=== PATIENT | female | born 1990 | race Caucasian/White ===

== ENCOUNTER 2017-02-11 19:57 | Emergency (ER) | payer MEDICAID, OTHER ==
[2017-02-11] MEDS ORDERED: 0.9 % SODIUM CHLORIDE 1,000 ML BAG IV ONE ×2 (20:55→21:32)
[2017-02-11] MEDS ORDERED: ONDANSETRON HCL IV 4 MG/2 ML VIAL IVP ONE (20:56)
[2017-02-11 21:39] LABS: BASO % 0.2 % (0-6); EOS % 0.1 % (0-6); HEMATOCRIT 44.3 % (35.0-47.0); HEMOGLOBIN 14.9 gm/dl (11.6-16.0); LYMPH % 4.2 % (16-45); MEAN CELL VOLUME 85.9 fl (81-97); MEAN CORPUSCULAR HEMOGLOBIN 28.9 pg (27-33); MEAN CORPUSCULAR HGB CONC 33.6 g/dl (32-36); MEAN PLATELET VOLUME 10.2 fl (7.4-10.4); MONO % 7.2 % (0-9); PLATELET COUNT 233 K/uL (130-400); RED BLOOD COUNT 5.16 M/uL (3.80-5.40); RED CELL DISTRIBUTION WIDTH 13.4 % (11.5-14.5); WHITE BLOOD COUNT W/O DIFF 11.5 K/uL (4.2-12.2)
[2017-02-11 21:51] LABS: ALB/GLOB RATIO 1.8 (1.1-1.8); ALBUMIN 4.8 gm/dL (3.5-5.0); ALKALINE PHOSPHATASE 60 U/L (38-126); ALT/SGPT 30 U/L (9-52); ANION GAP 12.7 (7-16); AST/SGOT 26 U/L (14-36); BILIRUBIN,TOTAL 1.13 mg/dL (0.2-1.3); BLOOD UREA NITROGEN 11 mg/dL (7-17); CARBON DIOXIDE 23.3 mmol/L (22-30); CREATININE 0.7 mg/dL (0.52-1.04); EST GLOMERULAR FILTRATION RATE > 60 ml/min; GLUCOSE,RANDOM 102 mg/dL (70-110); TOTAL PROTEIN 7.4 gm/dL (6.3-8.2)
[2017-02-11 22:00] LABS: URINE APPEARANCE CLEAR; URINE BILIRUBIN SMALL (NEGATIVE); URINE BLOOD NEGATIVE (NEGATIVE); URINE COLOR YELLOW; URINE GLUCOSE (UA) NEGATIVE (NEGATIVE); URINE LEUKOCYTE ESTERASE NEGATIVE (NEGATIVE); URINE NITRITE NEGATIVE (NEGATIVE); URINE PROTEIN TRACE (NEGATIVE)
[2017-02-11 22:02] LABS: HCG,QUALITATIVE URINE NEGATIVE (NEGATIVE); URINE KETONE 80 mg/dL (NEGATIVE)
--- NOTE | 2017-02-11 22:05 | Emergency Department Record ---
History of Present Illness - General Chief complaint: Vomiting Stated complaint: VOMITING Time Seen by Provider: 02/11/17 21:29 Source: Patient Mode of Arrival: Ambulatory Limitations: No limitations - History of Present Illness Initial comments: pt stated she drank too much alcohol last night and started vomiting at 3am. she states she has been vomiting all day and has been unable to keep water down. MD complaint: Nausea, Vomiting Onset/Timin -: Hour(s) Associated Abdominal Pain: No Radiation: Back Severity scale (1-10): 5 Quality: Aching Associated Symptoms: Nausea/vomiting - Related Data Allergies Allergy/AdvReac Type Severity Reaction Status Date / Time Penicillins Allergy Severe HIVES Verified 02/11/17 20:41 sulfamethoxazole Allergy Severe ANAPHYLAXIS Verified 02/11/17 20:41 [From Bactrim] trimethoprim [From Bactrim] Allergy Severe ANAPHYLAXIS Verified 02/11/17 20:41 cephalexin monohydrate Allergy Intermediate RASH Verified 02/11/17 20:41 [From Keflex] Travel Screening - Travel/Exposure Within Last 30 Days Have you traveled within the last 30 days?: No - Travel Symptoms Symptom Screening: None Review of Systems Reviewed: No additional complaints except as noted below Constitutional: Reports: As per HPI. Denies: Chills, Fever, Malaise, Night sweats, Weakness, Weight change Eyes: Reports: As per HPI. Denies: Eye discharge, Eye pain, Photophobia, Vision change ENT: Reports: As per HPI. Denies: Congestion, Dental pain, Ear pain, Epistaxis , Hearing loss, Throat pain Respiratory: Reports: As per HPI. Denies: Cough, Dyspnea, Hemoptysis, Stridor, Wheezes Cardiovascular: Reports: As per HPI. Denies: Arrhythmia, Chest pain, Dyspnea on exertion, Edema, Murmurs, Orthopnea, Palpitations, Paroxysmal nocturnal dyspnea, Rheumatic Fever, Syncope Endocrine: Reports: As per HPI. Denies: Fatigue, Heat or cold intolerance, Polydipsia, Polyuria Gastrointestinal: Reports: As per HPI. Denies: Abdominal pain, Constipation, Diarrhea, Hematemesis, Hematochezia, Melena, Nausea, Vomiting Genitourinary: Reports: As per HPI. Denies: Abnormal menses, Discharge, Dyspareunia, Dysuria, Frequency, Hematuria, Incontinence, Retention, Urgency Musculoskeletal: Reports: As per HPI. Denies: Arthralgia, Back pain, Gout, Joint swelling, Myalgia, Neck pain Skin: Reports: As per HPI. Denies: Bruising, Change in color, Change in hair/ nails, Lesions, Pruritus, Rash Neurological: Reports: As per HPI. Denies: Abnormal gait, Confusion, Headache, Numbness, Paresthesias, Seizure, Tingling, Tremors, Vertigo, Weakness Psychiatric: Reports: As per HPI. Denies: Anxiety, Auditory hallucinations, Depression, Homicidal thoughts, Suicidal thoughts, Visual hallucinations Hematological/Lymphatic: Reports: As per HPI. Denies: Anemia, Blood Clots, Easy bleeding, Easy bruising, Swollen glands Past Medical History - SOCIAL HISTORY Smoking Status: Current every day smoker - RESPIRATORY Hx Respiratory Disorders: No - CARDIOVASCULAR Hx Cardio Disorders: No - NEURO Hx Neuro Disorders: No - GI Hx GI Disorders: Yes Hx Reflux: Yes - Hx Genitourinary Disorders: No - ENDOCRINE Hx Endocrine Disorders: No - MUSCULOSKELETAL Hx Musculoskeletal Disorders: No - PSYCH Hx Psych Problems: No - HEMATOLOGY/ONCOLOGY Hx Hematology/Oncology Disorders: No Family Medical History Any Significant Family History?: Yes Hx HTN: Grandparents Physical Exam - General General Appearance: Alert, Oriented x3, Cooperative, Mild distress - Head Head exam: Normal inspection - Eye Eye exam: Normal appearance, PERRL, EOMI Pupils: Normal accommodation - ENT ENT exam: Normal exam, Mucous membranes dry, Normal external ear exam, Normal orophraynx, TM's normal bilaterally Ear exam: Normal external inspection. negative: External canal tenderness Nasal Exam: Normal inspection. negative: Discharge, Sinus tenderness Mouth exam: Normal external inspection, Tongue normal Teeth exam: Normal inspection. negative: Dental caries Throat exam: Normal inspection. negative: Tonsillar erythema, Tonsillar exudate - Neck Neck exam: Normal inspection, Full ROM. negative: Tenderness - Respiratory Respiratory exam: Normal lung sounds bilaterally. negative: Respiratory distress - Cardiovascular Cardiovascular Exam: Regular rate, Normal rhythm, Normal heart sounds - GI/Abdominal GI/Abdominal exam: Soft, Normal bowel sounds. negative: Tenderness - Rectal Rectal exam: Deferred - exam: Deferred - Extremities Extremities exam: Normal inspection, Full ROM, Normal capillary refill. negative: Tenderness - Back Back exam: Reports: Normal inspection, Full ROM. Denies: Muscle spasm, Rash noted, Tenderness - Neurological Neurological exam: Alert, CN II-XII intact, Normal gait, Oriented X3 - Psychiatric Psychiatric exam: Normal affect, Normal mood - Skin Skin exam: Dry, Intact, Normal color, Warm Course Vital Signs 02/11/17 20:25 Temperature 99.5 F Pulse Rate [ 84 Pulse Ox Probe] Respiratory 18 Rate Blood Pressure 127/90 [Left Arm] Pulse Ox 97 - Reevaluation(s) Reevaluation #1: 02/11/17 22:04 pt feels much better Medical Decision Making - Lab Data Result diagrams: 02/11/17 20:55 02/11/17 20:55 Lab Results 02/11/17 02/11/17 Range/Units 20:55 20:55 WBC 11.5 (4.2-12.2) K/uL RBC 5.16 (3.80-5.40) M/uL Hgb 14.9 (11.6-16.0) gm/dl Hct 44.3 (35.0-47.0) % MCV 85.9 (81-97) fl MCH 28.9 (27-33) pg MCHC 33.6 (32-36) g/dl RDW 13.4 (11.5-14.5) % Plt Count 233 (130-400) K/uL MPV 10.2 (7.4-10.4) fl Neutrophils % 83.0 H (47-80) % Band Neutrophils % 3.0 (0-5) % Lymphocytes % 6.0 L (16-45) % Monocytes % 8.0 (0-9) % Eosinophils % 0.0 (0-6) % Basophils % 0.0 (0-6) % Sodium 145 (136-145) mmol/L Potassium 3.7 (3.5-5.1) mmol/L Chloride 109 H (98-107) mmol/L Carbon Dioxide 23.3 (22-30) mmol/L Anion Gap 12.7 (7-16) BUN 11 (7-17) mg/dL Creatinine 0.7 (0.52-1.04) mg/dL Estimated GFR > 60 ml/min Random Glucose 102 (70-110) mg/dL Calcium 9.2 (8.5-10.1) mg/dL Total Bilirubin 1.13 (0.2-1.3) mg/dL AST 26 (14-36) U/L ALT 30 (9-52) U/L Alkaline Phosphatase 60 (38-126) U/L Total Protein 7.4 (6.3-8.2) gm/dL Albumin 4.8 (3.5-5.0) gm/dL Globulin 2.6 (1.4-4.8) gm/dL Albumin/Globulin Ratio 1.8 (1.1-1.8) Disposition Disposition: Discharge Clinical Impression: Dehydration Vomiting Qualifiers: Vomiting type: unspecified Vomiting Intractability: intractable Nausea presence : with nausea Qualified Code(s): R11.2 - Nausea with vomiting, unspecified Disposition: Home, Self-Care Condition: (1) Good Instructions: Acute Nausea and Vomiting (ED) Additional Instructions: follow up with family doctor. return sooner if worse. push fluids. take zofran in 6 hrs if needed Forms: Patient Portal Access
[2017-02-11] MEDS ORDERED: ONDANSETRON 4 MG ODT TABLET SL ONE (22:27)
== END 2017-02-11 22:48 | disposition home or self-care (01) ==
LOC: ER 19:57
DX: E86.0 Dehydration (principal); R11.2 Nausea with vomiting, unspecified
CPT/HCPCS: 80053; 81003; 81025; 85027; 96361; 96374; 99284; J2405; J7030

== ENCOUNTER 2017-12-18 04:53 | Emergency (ER) | payer BC ==
[2017-12-18] MEDS ORDERED: 0.9 % SODIUM CHLORIDE 1,000 ML BAG IV ONE (05:09)
[2017-12-18] MEDS ORDERED: ONDANSETRON HCL IV 4 MG/2 ML VIAL IVP ONE (05:10)
[2017-12-18] MEDS ORDERED: 0.9 % SODIUM CHLORIDE 1000ML 2,000 ML IV SCH (05:15)
--- NOTE | 2017-12-18 05:16 | Emergency Department Record ---
History of Present Illness - General Chief complaint: Vomiting Stated complaint: VOMITTING/9 WEEKS Time Seen by Provider: 12/18/17 05:10 Source: Patient Mode of Arrival: Ambulatory Limitations: No limitations - History of Present Illness Initial comments: 27 yo female presents to ED for evaluation of nausea and vomiting symptoms for the past 2-3 days. Patient reports that she is approximately 6 weeks , denies abdominal pain, cramping or bleeding symptoms. Patient reports that she was instructed by her OB to take Vitamin B6 for her nausea symptoms, has a prescription for Zofran that she has not filled as her OB told her that the medication is a "last resort". MD complaint: Nausea, Vomiting Onset/Timin -: Days(s) Description of Vomiting: Watery Associated Abdominal Pain: No Consistency: Intermittent Improves with: None Worsens with: Eating Associated Symptoms: Denies other symptoms - Related Data Home Medications Medication Instructions Recorded Confirmed Last Taken B6/mg/Turm/Rosalba/Anis/Gar/Gin/Sp 1 each PO DAILY PRN 12/18/17 12/18/17 Unknown [Morning Sickless Combo Pack] Allergies Allergy/AdvReac Type Severity Reaction Status Date / Time Penicillins Allergy Severe HIVES Unverified 12/03/17 19:38 sulfamethoxazole Allergy Severe ANAPHYLAXIS Unverified 12/03/17 19:38 [From Bactrim] trimethoprim [From Bactrim] Allergy Severe ANAPHYLAXIS Unverified 12/03/17 19:38 cephalexin monohydrate Allergy Intermediate RASH Unverified 12/03/17 19:38 [From Keflex] Travel Screening - Travel/Exposure Within Last 30 Days Have you traveled within the last 30 days?: No - Travel Symptoms Symptom Screening: Vomiting Review of Systems Constitutional: Denies: Chills, Fever, Malaise, Night sweats Eyes: Denies: Eye discharge, Eye pain ENT: Denies: Congestion, Ear pain, Epistaxis Respiratory: Denies: Cough, Dyspnea Cardiovascular: Denies: Arrhythmia, Chest pain Endocrine: Denies: Fatigue, Heat or cold intolerance Gastrointestinal: Reports: Nausea, Vomiting. Denies: Abdominal pain Genitourinary: Denies: Incontinence, Retention Musculoskeletal: Denies: Arthralgia, Back pain, Gout, Joint swelling Skin: Denies: Bruising, Change in color Neurological: Denies: Abnormal gait, Confusion, Headache, Seizure Psychiatric: Denies: Anxiety Hematological/Lymphatic: Denies: Anemia, Blood Clots Past Medical History - SOCIAL HISTORY Smoking Status: Current every day smoker Alcohol Use: None Drug Use: None - RESPIRATORY Hx Respiratory Disorders: No - CARDIOVASCULAR Hx Cardio Disorders: No - NEURO Hx Neuro Disorders: No - GI Hx GI Disorders: Yes Hx Reflux: Yes - Hx Genitourinary Disorders: No - ENDOCRINE Hx Endocrine Disorders: No - MUSCULOSKELETAL Hx Musculoskeletal Disorders: No - PSYCH Hx Psych Problems: No - HEMATOLOGY/ONCOLOGY Hx Hematology/Oncology Disorders: No Family Medical History Any Significant Family History?: Yes Hx HTN: Grandparents Physical Exam - General General Appearance: Alert, Oriented x3, Cooperative, Mild distress Limitations: No limitations - Head Head exam: Atraumatic, Normocephalic, Normal inspection Head exam detail: negative: Abrasion, Contusion, Ponce's sign, General tenderness, Hematoma, Laceration - Eye Eye exam: Normal appearance. negative: Conjunctival injection, Periorbital swelling, Periorbital tenderness, Scleral icterus - ENT Ear exam: negative: Auricular hematoma, Auricular trauma Nasal Exam: negative: Active bleeding, Discharge, Dried blood, Foreign body Mouth exam: negative: Drooling, Laceration, Tongue elevation - Neck Neck exam: Normal inspection. negative: Meningismus, Tenderness - Respiratory Respiratory exam: Normal lung sounds bilaterally. negative: Rales, Respiratory distress, Rhonchi, Stridor - Cardiovascular Cardiovascular Exam: Regular rate, Normal rhythm, Normal heart sounds - GI/Abdominal GI/Abdominal exam: Soft. negative: Rebound, Rigid, Tenderness - Rectal Rectal exam: Deferred - exam: Deferred - Extremities Extremities exam: Normal inspection. negative: Calf tenderness, Pedal edema, Tenderness - Back Back exam: Denies: CVA tenderness (R), CVA tenderness (L) - Neurological Neurological exam: Alert, Normal gait, Oriented X3 - Psychiatric Psychiatric exam: Normal affect, Normal mood - Skin Skin exam: Normal color. negative: Abrasion Type of lesion: negative: abrasion Course Vital Signs 12/18/17 04:58 Temperature 98.2 F Respiratory 20 Rate Blood Pressure 130/96 - Reevaluation(s) Reevaluation #1: 12/18/17 06:12 Labs reviewed, HCO3 17, AG 17. Labs are otherwise grossly unremarkable for an acute process. Reevaluation #2: 12/18/17 06:39 UA and influenza are negative as well. Patient is tolerating PO, reports improvement in her symptoms, and appears stable for discharge at this time. Medical Decision Making - Lab Data Result diagrams: 12/18/17 05:10 12/18/17 05:10 Disposition Disposition: Discharge Clinical Impression: Vomiting affecting Disposition: Home, Self-Care Condition: (2) Stable Instructions: Hyperemesis Gravidarum (ED) Additional Instructions: Return to ED if your symptoms worsen or if you have any concerns. Zofran as previously prescribed. Follow-up with your OB in 1-3 days as directed. Forms: Patient Portal Access Time of Disposition: 06:40 Quality - Quality Measures Quality Measures: N/A - Blood Pressure Screening Does Patient Have Any of the Following: No Blood Pressure Classification: Hypertensive Reading Systolic Measurement: 130 Diastolic Measurement: 96 Screening for High Blood Pressure: < First Hypertensive BP, F/U Documented > [ G8950] First Hypertensive Follow-up Interventions: Referral to alternative/primary care provider.
[2017-12-18 05:19] LABS: BASO % 0.2 % (0-6); EOS % 0.4 % (0-6); GRAN % 73.4 % (47-80); HEMOGLOBIN 14.4 gm/dl (11.6-16.0); LYMPH % 18.5 % (16-45); MEAN CELL VOLUME 81.9 fl (81-97); MEAN CORPUSCULAR HEMOGLOBIN 28.1 pg (27-33); MEAN CORPUSCULAR HGB CONC 34.3 g/dl (32-36); MEAN PLATELET VOLUME 9.3 fl (7.4-10.4); MONO % 7.5 % (0-9); PLATELET COUNT 287 K/uL (130-400); RED BLOOD COUNT 5.13 M/uL (3.80-5.40); RED CELL DISTRIBUTION WIDTH 13.3 % (11.5-14.5)
[2017-12-18 05:40] LABS: ALBUMIN 4.5 g/dL (4.0-5.0); ALKALINE PHOSPHATASE 38 U/L (35-104); ALT/SGPT 14 U/L (<33)
[2017-12-18 05:41] LABS: ALB/GLOB RATIO 1.6 (1.1-1.8); AST/SGOT 34 U/L (10.0-35.0); BLOOD UREA NITROGEN 7 mg/dL (6-20); CREATININE 0.5 mg/dL (0.5-0.9); EST GLOMERULAR FILTRATION RATE > 60 mL/min; GLUCOSE,RANDOM 106 mg/dL (74-109); LIPASE 23 U/L (13-60); TOTAL PROTEIN 7.4 g/dL (6.6-8.7)
[2017-12-18 06:29] LABS: URINE APPEARANCE CLEAR; URINE BILIRUBIN NEGATIVE (NEGATIVE); URINE BLOOD NEGATIVE (NEGATIVE); URINE COLOR YELLOW; URINE GLUCOSE (UA) NEGATIVE (NEGATIVE); URINE KETONE 15 mg/dL (NEGATIVE); URINE LEUKOCYTE ESTERASE TRACE (NEGATIVE); URINE NITRITE NEGATIVE (NEGATIVE); URINE PROTEIN NEGATIVE (NEGATIVE); URINE UROBILINOGEN 0.2 E.U./dL (0.20 - 1.00)
[2017-12-18 06:37] LABS: URINE BACTERIA FEW; URINE EPITHELIAL CELLS TNTC (FEW); URINE RBC 0 - 2 (NONE SEEN); URINE WBC 0 - 2 (0-2/hpf)
[2017-12-18 06:40] LABS: INFLUENZA A NEGATIVE (NEGATIVE); INFLUENZA B NEGATIVE (NEGATIVE)
== END 2017-12-18 07:01 | disposition home or self-care (01) ==
LOC: ER 04:53
DX: O21.0 Mild hyperemesis gravidarum (principal); Z3A.09 9 weeks gestation of pregnancy; O99.331 Smoking (tobacco) complicating pregnancy, first trimester
CPT/HCPCS: 99284 ×2; 96360; 96361; 83690; 85025; 80053; 81001; 87400; J2405; J7030

== ENCOUNTER 2018-01-16 02:13 | Emergency (ER) | payer BC ==
--- NOTE | 2018-01-16 02:27 | Emergency Department Record ---
History of Present Illness - General Chief complaint: ENT Stated complaint: EAR PAIN Time Seen by Provider: 01/16/18 02:25 Source: Patient Mode of Arrival: Ambulatory Limitations: No limitations - History of Present Illness Initial comments: 27 yo female presents to ED for evaluation of blood from the right ear. Patient reports that she was diagnosed with otitis media yesterday, started on Keflex due to PCN allergy. Patient reports that her she had significant pain/ pressure to the right ear that has now resolved as well. Patient denies fevers , chills, or recent illness. MD complaint: Ear pain Onset/Timin -: Days(s) Location: R ear Severity: Moderate Quality: Aching Consistency: Constant Improves with: None Worsens with: None - Related Data Allergies Allergy/AdvReac Type Severity Reaction Status Date / Time Penicillins Allergy Severe HIVES Unverified 12/03/17 19:38 sulfamethoxazole Allergy Severe ANAPHYLAXIS Unverified 12/03/17 19:38 [From Bactrim] trimethoprim [From Bactrim] Allergy Severe ANAPHYLAXIS Unverified 12/03/17 19:38 cephalexin monohydrate Allergy Intermediate RASH Unverified 12/03/17 19:38 [From Keflex] ciprofloxacin [From Cipro] AdvReac Mild Swelling Unverified 01/10/18 10:28 of lips ciprofloxacin HCl AdvReac Mild Swelling Unverified 01/10/18 10:28 [From Cipro] of lips Review of Systems Constitutional: Denies: Chills, Fever, Malaise, Night sweats Eyes: Denies: Eye discharge, Eye pain ENT: Reports: Ear pain. Denies: Congestion, Epistaxis Respiratory: Denies: Cough, Dyspnea Cardiovascular: Denies: Chest pain, Dyspnea on exertion Endocrine: Denies: Fatigue, Heat or cold intolerance Gastrointestinal: Denies: Abdominal pain, Nausea, Vomiting Genitourinary: Denies: Retention Musculoskeletal: Denies: Arthralgia, Back pain Skin: Denies: Bruising, Change in color Neurological: Denies: Abnormal gait, Confusion, Headache, Seizure Psychiatric: Denies: Anxiety Hematological/Lymphatic: Denies: Anemia, Blood Clots Past Medical History - SOCIAL HISTORY Smoking Status: Current every day smoker Drug Use: None - RESPIRATORY Hx Respiratory Disorders: No - CARDIOVASCULAR Hx Cardio Disorders: No - NEURO Hx Neuro Disorders: No - GI Hx GI Disorders: Yes Hx Reflux: Yes - Hx Genitourinary Disorders: No - ENDOCRINE Hx Endocrine Disorders: No - MUSCULOSKELETAL Hx Musculoskeletal Disorders: No - PSYCH Hx Psych Problems: No - HEMATOLOGY/ONCOLOGY Hx Hematology/Oncology Disorders: No Family Medical History Hx HTN: Grandparents Physical Exam - General General Appearance: Alert, Oriented x3, Cooperative, Mild distress Limitations: No limitations - Head Head exam: Atraumatic, Normocephalic, Normal inspection Head exam detail: negative: Abrasion, Contusion, Ponce's sign, General tenderness, Hematoma, Laceration - Eye Eye exam: Normal appearance. negative: Conjunctival injection, Periorbital swelling, Periorbital tenderness, Scleral icterus - ENT Ear exam: Other (Erythema to the TM right, mils amount of blood present to the anterior portion of the TM, no clear perforation is present but is suspected clinically. EAC appears normal.). negative: Auricular hematoma, Auricular trauma, External canal tenderness Nasal Exam: negative: Discharge, Dried blood, Foreign body Mouth exam: negative: Drooling, Laceration, Muffled voice, Tongue elevation - Neck Neck exam: Normal inspection. negative: Meningismus, Tenderness - Respiratory Respiratory exam: Normal lung sounds bilaterally. negative: Rales, Respiratory distress, Rhonchi, Stridor - Cardiovascular Cardiovascular Exam: Regular rate, Normal rhythm, Normal heart sounds - GI/Abdominal GI/Abdominal exam: Soft. negative: Rebound, Rigid, Tenderness - Rectal Rectal exam: Deferred - exam: Deferred - Extremities Extremities exam: Normal inspection. negative: Calf tenderness, Pedal edema, Tenderness - Back Back exam: Denies: CVA tenderness (R), CVA tenderness (L) - Neurological Neurological exam: Alert, Normal gait, Oriented X3 - Psychiatric Psychiatric exam: Normal affect, Normal mood - Skin Skin exam: Normal color. negative: Abrasion Type of lesion: negative: abrasion Course Vital Signs 01/16/18 02:18 Temperature 98.3 F Pulse Rate [ 110 H Pulse Ox Probe] Respiratory 20 Rate Blood Pressure 131/84 [Left Arm] Pulse Ox 95 - Reevaluation(s) Reevaluation #1: 01/16/18 02:31 Symptoms appear c/w otitis media with probable small perforation, will refer to Dr. Roberts for further evaluation and continue Keflex as previously prescribed. No evidence for otitis externa on examination. Disposition Disposition: Discharge Clinical Impression: Tympanic membrane perforation Qualifiers: Laterality: right Qualified Code(s): H72.91 - Unspecified perforation of tympanic membrane, right ear Disposition: Home, Self-Care Condition: (2) Stable Instructions: Ruptured Eardrum (ED) Additional Instructions: Return to ED if your symptoms worsen or if you have any concerns. Continue Keflex as directed. Follow-up with Dr. Roberts in 1-3 days as directed. Referrals: ROLA ROBERTS [DOCTOR OF OSTEOPATH] - Forms: Patient Portal Access Time of Disposition: 02:27 Quality - Quality Measures Quality Measures: N/A - Blood Pressure Screening Does Patient Have Any of the Following: No Blood Pressure Classification: Pre-Hypertensive BP Reading Systolic Measurement: 131 Diastolic Measurement: 84 Screening for High Blood Pressure: < Pre-Hypertensive BP, F/U Documented > [ G8950] Pre-Hypertensive Follow-up Interventions: Referral to alternative/primary care provider.
== END 2018-01-16 02:32 | disposition home or self-care (01) ==
LOC: ER 02:13
DX: H72.91 Unspecified perforation of tympanic membrane, right ear (principal); F17.210 Nicotine dependence, cigarettes, uncomplicated
CPT/HCPCS: 99282

== ENCOUNTER 2019-08-31 18:34 | Emergency (ER) | payer BC ==
[2019-08-31] MEDS ORDERED: CLINDAMYCIN 600MG/50ML PREMIX 600 MG/50 ML BAG IVPB ONE (19:10)
--- NOTE | 2019-08-31 19:30 | Emergency Department Record ---
History of Present Illness - General Chief complaint: Abscess Stated complaint: RT BREAST INFECTION Time Seen by Provider: 08/31/19 19:02 Source: Patient Mode of Arrival: Ambulatory Limitations: No limitations - History of Present Illness Initial comments: pt has redness and pain in her lower medial quarter of her r breast. it started gradually and is getting worse. she is not currently breast feeding but does have a 13month old that breast fed for a short time MD complaint: Abscess/boil Onset/Timin -: Days(s) Location: Chest Severity: Mild Quality: Burning Consistency: Getting worse Improves with: None Worsens with: None Context: None Associated symptoms: Chills, Myalgias Treatments Prior to Arrival: None - Related Data Previous Rx's Medication Instructions Recorded Clindamycin HCl 150 mg PO Q8HR #30 capsule 08/31/19 Clindamycin HCl 300 mg PO Q8HR #30 capsule 08/31/19 Allergies Allergy/AdvReac Type Severity Reaction Status Date / Time Penicillins Allergy Severe HIVES Verified 08/31/19 18:42 sulfamethoxazole Allergy Severe ANAPHYLAXIS Verified 08/31/19 18:42 [From Bactrim] trimethoprim [From Bactrim] Allergy Severe ANAPHYLAXIS Verified 08/31/19 18:42 ciprofloxacin [From Cipro] AdvReac Mild Swelling Verified 08/31/19 18:42 of lips ciprofloxacin HCl AdvReac Mild Swelling Verified 08/31/19 18:42 [From Cipro] of lips Travel Screening - Travel/Exposure Within Last 30 Days Have you traveled within the last 30 days?: No Review of Systems Reviewed: No additional complaints except as noted below Constitutional: Reports: As per HPI. Denies: Chills, Fever, Malaise, Night sweats, Weakness, Weight change Eyes: Reports: As per HPI. Denies: Eye discharge, Eye pain, Photophobia, Vision change ENT: Reports: As per HPI. Denies: Congestion, Dental pain, Ear pain, Epistaxis, Hearing loss, Throat pain Respiratory: Reports: As per HPI. Denies: Cough, Dyspnea, Hemoptysis, Stridor, Wheezes Cardiovascular: Reports: As per HPI. Denies: Arrhythmia, Chest pain, Dyspnea on exertion, Edema, Murmurs, Orthopnea, Palpitations, Paroxysmal nocturnal dyspnea, Rheumatic Fever, Syncope Endocrine: Reports: As per HPI. Denies: Fatigue, Heat or cold intolerance, Polydipsia, Polyuria Gastrointestinal: Reports: As per HPI. Denies: Abdominal pain, Constipation, Diarrhea, Hematemesis, Hematochezia, Melena, Nausea, Vomiting Genitourinary: Reports: As per HPI. Denies: Abnormal menses, Discharge, Dyspareunia, Dysuria, Frequency, Hematuria, Incontinence, Retention, Urgency Musculoskeletal: Reports: As per HPI. Denies: Arthralgia, Back pain, Gout, Joint swelling, Myalgia, Neck pain Skin: Reports: As per HPI. Denies: Bruising, Change in color, Change in hair/nails, Lesions, Pruritus, Rash Neurological: Reports: As per HPI. Denies: Abnormal gait, Confusion, Headache, Numbness, Paresthesias, Seizure, Tingling, Tremors, Vertigo, Weakness Psychiatric: Reports: As per HPI. Denies: Anxiety, Auditory hallucinations, Depression, Homicidal thoughts, Suicidal thoughts, Visual hallucinations Hematological/Lymphatic: Reports: As per HPI. Denies: Anemia, Blood Clots, Easy bleeding, Easy bruising, Swollen glands Past Medical History - SOCIAL HISTORY Smoking Status: Current every day smoker Alcohol Use: None Drug Use: None - RESPIRATORY Hx Respiratory Disorders: No - CARDIOVASCULAR Hx Cardio Disorders: No - NEURO Hx Neuro Disorders: No - GI Hx GI Disorders: Yes Hx Reflux: Yes - Hx Genitourinary Disorders: No - ENDOCRINE Hx Endocrine Disorders: No - MUSCULOSKELETAL Hx Musculoskeletal Disorders: No - PSYCH Hx Psych Problems: No - HEMATOLOGY/ONCOLOGY Hx Hematology/Oncology Disorders: No Family Medical History Any Significant Family History?: No Hx HTN: Grandparents Physical Exam - General General Appearance: Alert, Oriented x3, Cooperative, Mild distress - Head Head exam: Normal inspection - Eye Eye exam: Normal appearance, PERRL, EOMI Pupils: Normal accommodation - ENT ENT exam: Normal exam, Mucous membranes moist, Normal external ear exam, Normal orophraynx Ear exam: Normal external inspection. negative: External canal tenderness Nasal Exam: Normal inspection. negative: Discharge, Sinus tenderness Mouth exam: Normal external inspection, Tongue normal Teeth exam: Normal inspection. negative: Dental caries Throat exam: Normal inspection. negative: Tonsillar erythema, Tonsillar exudate - Neck Neck exam: Normal inspection, Full ROM. negative: Tenderness - Respiratory Respiratory exam: Normal lung sounds bilaterally, Chest wall tenderness, Other (tender over r medial,lower breast w erythema). negative: Respiratory distress - Cardiovascular Cardiovascular Exam: Regular rate, Normal rhythm, Normal heart sounds - GI/Abdominal GI/Abdominal exam: Soft, Normal bowel sounds. negative: Tenderness - Rectal Rectal exam: Deferred - exam: Deferred - Extremities Extremities exam: Normal inspection, Full ROM, Normal capillary refill. negative: Tenderness Image of Full Body: 1 - erythema, tender, warmth - Back Back exam: Reports: Normal inspection, Full ROM. Denies: Muscle spasm, Rash noted, Tenderness - Neurological Neurological exam: Alert, CN II-XII intact, Normal gait, Oriented X3 - Psychiatric Psychiatric exam: Normal affect, Normal mood - Skin Skin exam: Dry, Intact, Normal color, Warm Course Vital Signs 08/31/19 18:38 Temperature 97.7 F Pulse Rate [ 90 Pulse Ox Probe] Respiratory 16 Rate Blood Pressure 125/85 [Left Arm] Pulse Ox 98 Medical Decision Making - Lab Data Result diagrams: 08/31/19 20:00 Disposition Disposition: Discharge Clinical Impression: Mastitis Disposition: Home, Self-Care Condition: (1) Good Instructions: Mastitis (ED) Additional Instructions: follow up with ob. return sooner if worse. moist heat to breast 4 times a day. motrin for pain Prescriptions: Clindamycin HCl 150 mg PO Q8HR #30 capsule Clindamycin HCl 300 mg PO Q8HR #30 capsule Forms: Patient Portal Access Quality - Quality Measures Quality Measures: N/A - Blood Pressure Screening Does Patient Have Any of the Following: No Blood Pressure Classification: Pre-Hypertensive BP Reading Systolic Measurement: 125 Diastolic Measurement: 85 Screening for High Blood Pressure: < Pre-Hypertensive BP, F/U Documented > [G8950] Pre-Hypertensive Follow-up Interventions: Follow-up with rescreen every year.
[2019-08-31 20:07] LABS: ABSOLUTE NEUTROPHIL COUNT 4.72; BASO % 0.1 % (0-6); GRAN % 60.5 % (47-80); HEMATOCRIT 41.1 % (35.0-47.0); HEMOGLOBIN 13.4 gm/dl (11.6-16.0); LYMPH % 27.1 % (16-45); MEAN CELL VOLUME 87.1 fl (81-97); MEAN CORPUSCULAR HEMOGLOBIN 28.4 pg (27-33); MEAN CORPUSCULAR HGB CONC 32.6 g/dl (32-36); MEAN PLATELET VOLUME 9.8 fl (7.4-10.4); MONO % 11.3 % (0-9); PLATELET COUNT 250 K/uL (130-400); RED BLOOD COUNT 4.72 M/uL (3.80-5.40); RED CELL DISTRIBUTION WIDTH 12.8 % (11.5-14.5); WHITE BLOOD COUNT W/O DIFF 7.8 K/uL (4.2-12.2)
== END 2019-08-31 20:44 | disposition home or self-care (01) ==
LOC: ER 18:34
DX: N61.0 Mastitis without abscess (principal); F17.210 Nicotine dependence, cigarettes, uncomplicated
CPT/HCPCS: 85025; 96365; 99284